=== PATIENT | male | born 1990 | race Two or more races ===

== ENCOUNTER 2020-10-05 11:12 | Emergency (ER) | payer OTHER ==
[~2020-10-05] VITALS: Ht 193 cm; Wt 131.1 kg
[2020-10-05] MEDS ORDERED: LIDOCAINE-MPF 1%, 5ML INFIL ONE (12:00)
[2020-10-05] MEDS ORDERED: LIDOCAINE-MPF 1%, 5ML ONE (12:09)
[2020-10-05 13:03] VITALS: BP 149/74
== END 2020-10-05 13:05 | disposition home or self-care (01) ==
LOC: ED 11:59
DX: L02.214 Cutaneous abscess of groin (principal)
CPT/HCPCS: 10060; 99283